=== PATIENT | female | born 1990 | race Caucasian/White ===

== ENCOUNTER 2018-02-28 14:37 | Emergency (ER) | payer OTHER, BC ==
[~2018-02-28] VITALS: Ht 162.6 cm; Wt 52.3 kg
[2018-02-28 14:44] VITALS: BP 121/52
[2018-02-28] MEDS ORDERED: KETOROLAC10 MG PO (15:09)
[2018-02-28] MEDS ORDERED: CYCLOBENZ5 MG PO (15:09)
== END 2018-02-28 15:17 | disposition home or self-care (01) ==
LOC: ED 14:37
DX: S16.1XXA Strain of muscle, fascia and tendon at neck level, initial encounter (principal); V47.0XXA Car driver injured in collision with fixed or stationary object in nontraffic accident, initial encounter; Y92.410 Unspecified street and highway as the place of occurrence of the external cause; R40.2412 Glasgow coma scale score 13-15, at arrival to emergency department; Z79.899 Other long term (current) drug therapy